=== PATIENT | female | born 1990 ===

== ENCOUNTER 2018-04-09 15:43 | Inpatient (IN) | payer OTHER ==
[~2018-04-09] VITALS: Ht 165.1 cm; Wt 2.7 kg
[2018-04-09] MEDS ORDERED: PRENATAL TABLE1 EAC1 PO (17:46)
[2018-04-12] MEDS ORDERED: PREPLUS CA-FE1 EACH PO (09:50)
[2018-04-12] MEDS ORDERED: OXYC1TAB9 PO (09:50)
== END 2018-04-12 12:00 | disposition home or self-care (01) | DRG 766 ==
LOC: LDR 15:43 → OB/GYN 20:15
PROVIDERS: Specialist
PROC: 4A1HXCZ Monitoring of Products of Conception, Cardiac Rate, External Approach (ICD-10-PCS; 2018-04-09)
PROC: 10D00Z1 Extraction of Products of Conception, Low, Open Approach (ICD-10-PCS; principal; 2018-04-09 17:00)
DX: O41.03X0 Oligohydramnios, third trimester, not applicable or unspecified (principal); Z3A.40 40 weeks gestation of pregnancy; Z37.0 Single live birth